=== PATIENT | male | born 1995 | race Two or more races ===

== ENCOUNTER 2017-05-03 01:30 | Emergency (ER) | payer OTHER ==
[~2017-05-03] VITALS: Ht 182.9 cm; Wt 71.7 kg
[2017-05-03 01:35] VITALS: BP 112/81
--- NOTE | 2017-05-03 02:47 | NUR ---
PT LEFT WITHOUT DISCHARGE PAPERS. AWARE.
== END 2017-05-03 02:48 | disposition home or self-care (01) ==
LOC: ER 01:41
DX: R05 Cough (principal); F17.200 Nicotine dependence, unspecified, uncomplicated
CPT/HCPCS: 99281; A4606; Z7610; Z7502